=== PATIENT | male | born 1985 | race Caucasian/White ===

== ENCOUNTER 2025-01-29 11:20 | Outpatient (CLI) | payer OTHER ==
[2025-01-31 07:11] LABS: HSV I IGG TYPE SPECIFIC Non Reactive (Non Reactive)
[2025-01-31 21:11] LABS: chla t Negative (Negative); neiss Negative (Negative)
== END 2025-01-29 11:24 | disposition home or self-care (01) ==
LOC: LAB 11:20
DX: N95.1 Menopausal and female climacteric states (principal); N50.3 Cyst of epididymis; Z11.3 Encounter for screening for infections with a predominantly sexual mode of transmission; Z11.4 Encounter for screening for human immunodeficiency virus [HIV]; D60.9 Acquired pure red cell aplasia, unspecified; B00.9 Herpesviral infection, unspecified